=== PATIENT | female | born 1935 | race Caucasian/White ===

== ENCOUNTER 2016-07-09 10:36 | Emergency (ER) | payer MEDICARE, MEDICAID ==
--- NOTE | 2016-07-09 10:47 | ERNOTE ---
Medical Problem HPI - General Chief Complaint: General Assessment Time Seen by Provider: 07/09/16 10:36 Source: EMS, [facility] records Exam Limitations: clinical condition - Immun/Allergies/Home Medications Immunizations: IMMUNIZATION HX Immunizations Up to Date Yes History of Influenza Vaccine Yes Hx Pneumococcal Vaccination Yes Allergies/Adverse Reactions: Allergies No Known Allergies Allergy (Verified 07/09/16 10:45) Home Medications: HOME MEDICATIONS Alendronate Sodium [Fosamax] 70 mg PO SA 02/27/13 [Last Taken Unknown] Aspirin 325 mg PO DAILY 02/27/13 [Last Taken Unknown] Levothyroxine Sodium [Synthroid] 50 mcg PO DAILY 02/27/13 [Last Taken Unknown] Donepezil HCl [Aricept] 10 mg PO DAILY 12/03/15 [Last Taken Unknown] Lisinopril [Zestril] 5 mg PO DAILY tablet 12/09/15 [Last Taken Unknown] glipiZIDE [Glucotrol] 10 mg PO BIDAC tablet 12/09/15 [Last Taken Unknown] Ranitidine HCl [Heartburn Relief] 150 mg PO BID 02/09/16 [Last Taken Unknown] Sennosides [Senna-Extra] 17.2 mg PO HS 02/09/16 [Last Taken Unknown] Calcium Carbonate [Tums] 500 mg PO BID 02/13/16 [Last Taken Unknown] Bimatoprost [Lumigan 0.01% Opth Solution] 2.5 ml OP DAILY 07/09/16 [Last Taken Unknown] Furosemide [Lasix] 40 mg PO DAILY 07/09/16 [Last Taken Unknown] Gentamicin Sulfate [Gentak] 3.5 gm OP HS 07/09/16 [Last Taken Unknown] Memantine HCl [Namenda Xr] 28 mg PO DAILY 07/09/16 [Last Taken Unknown] Metformin HCl [Glumetza] 250 mg PO BID 07/09/16 [Last Taken Unknown] Metoprolol Tartrate [Lopressor] 50 mg PO BID 07/09/16 [Last Taken Unknown] - History of Present History Narrative: Patient is a [facility] resident with dementia and unable to give a history. She had breakfast and went back to bed. A nurse witnessed her turning purple and becoming unresponsive. On arrival of EMS patient is lethargic, no focal symptoms observed, becomes more alert during drive to hospital Date (Duration): 07/09/16 Time (Timing): 09:45 Review of Systems - Narrative Narrative: unobtainable due to dementia - Patient's Past Medical History Patient History - Medical: Alzheimer's Disease, Diabetes Type 2, Dementia, Hypothyroidism, Osteoporosis, UTI'S Patient History - Cardiac/Respiratory: Atrial Fibrillation Patient History - Cancer: No Hx of Cancer Patient History - Surgical Procedures: Noncontributory Patient History - Other: None - Family History Mother Family History - Medical: History Unknown Family History - Cardiac/Respiratory: History Unknown Father Family History - Medical: History Unknown Family History - Cardiac/Respiratory: History Unknown - Social History Living Situations: [facility]dc Abuse History: No History of abuse Psych History: No pertinent hx Alcohol Use: none Drug Use: none - Immunizations Immunizations Up to Date: Yes Hx Pneumococcal Vaccination: Yes History of Influenza Vaccine: Yes Physical Exam - Physical Exam General Appearance: Present: wd/wn, alert, no apparent distress Eye Exam: Normal inspection: bilateral, PERRL: bilateral Ears, Nose, Throat: Present: normal ENT inspection, normal pharynx Neck: Present: normal inspection Respiratory: Present: no respiratory distress, normal breath sounds, no accessory muscle use, lungs clear Cardiovascular/Chest: Present: regular rate, rhythm, no murmur Gastrointestinal/Abdominal: Present: normal bowel sounds, nontender, nondistended Neurological Exam: Present: alert, oriented - to first name only, no motor/ sensory deficits - following some commands, moves all extremities, 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 - Vital Signs Patient's Vital Signs:: I have reviewed the patient's vital signs. Vital Signs: Vital Signs 07/09/16 07/09/16 10:37 10:46 Temperature 36.4 C L Pulse Rate 69 75 Respiratory 16 24 H Rate Blood Pressure 120/63 120/63 O2 Sat by Pulse 93 Oximetry - EKG EKG: atrial fibrillation, nonspecific ST T wave changes EKG read: Interp. by me - X-Ray X-Ray #1 X-Ray: chest - slightly increased vascular markings, chronic changes Interpretation: Reviewed by me - Progress/Reassessment Chief Complaint: General Assessment Progress Note-Subjective: 07/09/16 12:29 patient alert, face symmetric, squeezes both hands Departure - Departure Clinical Impression: Choking Qualifiers: Encounter type: initial encounter Qualified Code(s): T17.308A - Unspecified foreign body in larynx causing other injury, initial encounter Disposition: [facility] [place] Condition: Fair Referrals: Sen Solis MD [Primary Care Provider] -
[2016-07-09 11:04] LABS: Hematocrit 40.4 % (37.0-47.0); Hemoglobin 13.3 gm/dL (12.5-16.0); Mean Cell Volume 100.2 fl (78-100); Mean Corpuscular Hgb Conc 32.9 g/dl (32-36); Mean Platelet Volume 10.3 fl (6.0-9.5); Neutrophil # 10.5 K/mm3 (1.3-6.0); Neutrophil % 74.5 % (42-75.0); Platelet Count 290 K/mm3 (150-450); Red Blood Count 4.03 M/mm3 (4.2-5.4); Red Cell Distribution Width 13.3 % (11.5-14.0); White Blood Count 14.1 K/mm3 (4.0-10.5)
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
[2016-07-09 11:22] LABS: ALT 18 U/L (19-67); AST 17 U/L (0-48); Albumin * 2.7 gm/dl (3.4-5.0); Alkaline Phosphatase * 99 U/L (50-170); Anion Gap 8.6 mmol/L (6.8-13.8); BUN/Creatinine Ratio 16.2 (9.0-21.6); Bilirubin, Total 0.4 mg/dL (0.0-1.1); Blood Urea Nitrogen 16 mg/dL (3-23); Ca. Corrected For Albumin 9.6 mg/dL (8.4-10.2); Calcium * 8.9 mg/dL (7.9-10.9); Carbon Dioxide 32.7 mmol/L (24-32.6); Chloride 104 mmol/L (97-106); Glucose * 178 mg/dL (70-110); Potassium 4.3 mmol/L (3.4-4.6); Sodium 141 mmol/L (132-142); Total Protein 7.8 gm/dL (6.2-8.2); Troponin I Less than 0.017 ng/ml (0.00-0.10)
[2016-07-09 12:01] VITALS: BP 105/58
== END 2016-07-09 13:10 ==
LOC: ER 10:36
DX: T17.308A Unspecified foreign body in larynx causing other injury, initial encounter (principal); X58.XXXA Exposure to other specified factors, initial encounter; Y93.9 Activity, unspecified; Y92.122 Bedroom in nursing home as the place of occurrence of the external cause

== ENCOUNTER 2018-05-05 14:30 | Inpatient (IN) ==
[2018-05-05] MEDS ORDERED: FUROSEMIDE 10 MG/ML VIAL IV ONE (14:47)
[2018-05-05 15:06] LABS: Hematocrit 43.5 % (37.0-47.0); Hemoglobin 13.7 gm/dL (12.5-16.0); Mean Cell Volume 103.6 fl (78-100); Mean Corpuscular Hemoglobin 32.6 pg (27-31); Mean Corpuscular Hgb Conc 31.5 g/dl (32-36); Mean Platelet Volume 11.8 fl (8-12.5); NRBC# 0.1 k/mm3 (0-1); Neutrophil # 8.4 K/mm3 (1.3-6.0); Neutrophil % 77.9 % (42-75.0); Platelet Count 204 K/mm3 (150-450); Red Cell Distribution Width 14.8 % (11.5-14.0); White Blood Count 10.8 K/mm3 (4.0-10.5)
[2018-05-05 15:25] LABS: BUN/Creatinine Ratio 33.3 (9.0-21.6)
[2018-05-05 15:26] LABS: Albumin * 2.4 gm/dl (3.4-5.0); Anion Gap 10.8 mmol/L (6.8-13.8); Bilirubin, Total 0.6 mg/dL (0.0-1.1); Carbon Dioxide 30.5 mmol/L (24-32.6); Potassium 3.3 mmol/L (3.4-4.6); Total Protein 7.8 gm/dL (6.2-8.2)
[2018-05-05 15:31] LABS: Troponin I 0.151 ng/mL (0.00-0.10)
--- NOTE | 2018-05-05 16:15 | ERNOTE ---
Dyspnea - Date Date of Service: 05/05/18 - General Presenting Symptoms: shortness of breath Time Seen by Provider: 05/05/18 14:43 Source: EMS Exam Limitations: clinical condition - Immun/Allergies/Home Medications Immunizations: IMMUNIZATION HX Immunizations Up to Date Yes History of Influenza Vaccine Yes Hx Pneumococcal Vaccination Yes Allergies/Adverse Reactions: Allergies No Known Allergies Allergy (Verified 05/05/18 14:41) Home Medications: HOME MEDICATIONS Alendronate Sodium [Fosamax] 70 mg PO SA 02/27/13 [Last Taken Unknown] Aspirin 325 mg PO DAILY 02/27/13 [Last Taken Unknown] Donepezil HCl [Aricept] 10 mg PO DAILY 12/03/15 [Last Taken Unknown] glipiZIDE [Glucotrol] 10 mg PO BIDAC tab 12/09/15 [Last Taken Unknown] Ranitidine HCl [Heartburn Relief] 150 mg PO BID 02/09/16 [Last Taken Unknown] Bimatoprost [Lumigan 0.01% Opth Solution] 2.5 ml OP DAILY 07/09/16 [Last Taken Unknown] Furosemide [Lasix] 40 mg PO DAILY 07/09/16 [Last Taken Unknown] Memantine HCl [Namenda Xr] 28 mg PO DAILY 07/09/16 [Last Taken Unknown] Metoprolol Tartrate [Lopressor] 50 mg PO BID 07/09/16 [Last Taken Unknown] metFORMIN HCL [Glumetza] 250 mg PO BID 07/09/16 [Last Taken Unknown] Cholecalciferol (Vitamin D3) [Vitamin D] 2,000 unit PO DAILY 09/20/17 [Last Taken Unknown] Cyanocobalamin [Vitamin B-12] 1,000 mcg PO DAILY 09/20/17 [Last Taken Unknown] Nystatin [Mycostatin Powder] 1 appl TP BID PRN 09/20/17 [Last Taken Unknown] acetaminophen 325 mg capsule 325 mg PO Q4H PRN 11/14/17 [Last Taken Unknown] albuterol sulfate 2.5 mg/3 mL (0.083 %) solution for nebulization 2.5 mg IH Q4H PRN 11/14/17 [Last Taken Unknown] levothyroxine 50 mcg capsule 50 mcg PO DAILY 11/14/17 [Last Taken Unknown] magnesium hydroxide 400 mg/5 mL oral suspension 30 ml PO HS PRN ml 11/14/17 [Last Taken Unknown] sennosides 8.6 mg tablet 17.2 mg PO QHS tab 11/14/17 [Last Taken Unknown] - History of Present Illness Narrative: [facility] with hx of dementia arrives in ed with respiratory distress,,also hx of chf Severity: severe Treatment SLIP MIXER: paramedics Initiating event: Reports: unknown Modifying Factors - (Improves): Reports: nothing Modifying Factors (Worsens): Reports: nothing Associated Symptoms-Dyspnea: Reports: denies symptoms Prior Treatment: Reports: recently seen, treated by physician Review of Systems - Narrative Narrative: patient unresponsive unable to obtain review of symptoms - Review of Systems Constitutional: Present: no symptoms reported EYE: Present: no symptoms reported ENT: Present: no symptoms reported Respiratory: Present: See HPI, shortness of breath, orthopnea Cardiology: Present: no symptoms reported Gastrointestinal/Abdominal: Present: no symptoms reported Genitourinary: Present: no symptoms reported Musculoskeletal: Present: no symptoms reported Skin: Present: no symptoms reported Neurological: Present: no symptoms reported Endocrine: Present: no symptoms reported Hematologic/Lymphatic: Present: no symptoms reported Psych: Present: no symptoms reported Medical History (Last Reviewed 04/04/18 @ 08:24 by Jennifer Pearl) Superficial injury of left foot and one or more toes (Acute) Hyperglycemia due to type 2 diabetes mellitus (Chronic) Social History: Preferred Language Faroese Smoking Status Never smoker Abuse History No History of abuse Psych History No pertinent hx (Last Updated 04/13/18 @ 20:28 by Michael Chatterjee DO) No Social History Section defined Physical Exam - Physical Exam General Appearance: Present: severe distress Head Exam: Present: normal inspection, no evidence of injury Eye Exam: Normal inspection: bilateral, PERRL: bilateral, EOMI: bilateral Ears, Nose, Throat: Present: normal ENT inspection Neck: Present: other - jvd present Respiratory: Present: respiratory distress, accessory muscle use, decreased breath sounds, crackles, rales, rhonchi Cardiovascular/Chest: Present: tachycardia, systolic murmur Gastrointestinal/Abdominal: Present: normal bowel sounds, nontender, nondistended, soft, no organomegaly Back Exam: Present: normal inspection, normal range of motion, no CVA tenderness, no vertebral tenderness Extremity Exam: Present: normal range of motion, extremity edema Neurological Exam: Present: disoriented to person, disoriented to place, disoriented to situation Skin Exam: Present: normal color, warm/dry Lymphatic Exam: Present: no adenopathy Progress - Date and Time Seen: Date and Time: 05/05/18 16:12 condition unchanged, case discussed with dr rose to be admitted, condition poor - Results and Orders Patient's Lab Results:: I have reviewed the patient's lab results. - Vital Signs Patient's Vital Signs:: I have reviewed the patient's vital signs. Vital Signs: Vital Signs 05/05/18 14:36 05/05/18 14:55 05/05/18 15:08 Temperature 36.7 C Pulse Rate 141 H 149 H 147 H Respiratory Rate 23 H Blood Pressure 136/78 129/67 O2 Sat by Pulse Oximetry 84 L 05/05/18 15:30 Temperature Pulse Rate 142 H Respiratory Rate 22 H Blood Pressure 150/75 H O2 Sat by Pulse Oximetry 93 - EKG EKG: supraventricular tachycardia - X-Ray X-Ray #1 X-Ray: chest Interpretation: Discd w/ radiologist - chf, pulmonary edema - Progress/Reassessment Chief Complaint: Dyspnea Progress:: Unchanged - Transfer of Care Expected Disposition: Admit Plan - Plan Plan: to admit to hosppital Departure Clinical Impression: Congestive heart failure (CHF) - Departure Disposition: Still a patient Condition: Critical Referrals: Michael Chatterjee DO [Primary Care Provider] -
[2018-05-05] MEDS ORDERED: 0.5 NORMAL SALINE 1,000 ML IV PRN (17:02)
[2018-05-05] MEDS ORDERED: METOPROLOL TARTRATE 1 MG/ML AMPUL IV ONE (17:03)
--- NOTE | 2018-05-05 17:09 | HP ---
Chief Complaint - Chief Complaint Date of Service: 05/05/18 Time of Service: 17:09 Chief Complaint: Change in mental status, cough, shortness of breath History of Present Illness: Michelle is an 83 yo female with chronic dementia who had an acute change of decrease mentation and unable to take medications, she also was short of breath, and had a cough. She presented to the [facility] ER. She does not converse, but this may be more chronic dementia. She was 84% on room air and was placed on 6lpm oxygen to keep sats >90%. She had a chest xray that showed pulmonary congestion and possible consolidation vs pulmonary edema. She was given 80mg IV lasix in the ER. Her heart rate was 140bpm with atrial fibrillation (chronic) on EKG. She had leukocytosis and deminshed GFR. Potassium low. The patient does not communicate so further history is unobtainable, will use records from [facility]. Medical History (Last Reviewed 05/06/18 @ 01:47 by Maria C Colon RN) Superficial injury of left foot and one or more toes (Acute) Hyperglycemia due to type 2 diabetes mellitus (Chronic) Acute respiratory failure Alzheimer disease Anemia Aphasia Atrial fibrillation CHF (congestive heart failure) Dysphagia, oropharyngeal phase Hypertension Hypothyroidism Muscle weakness Osteoporosis Pulmonary hypertension Rheumatic heart disease Type 2 diabetes mellitus UTI (urinary tract infection) Surgical History: Surgical History (Last Reviewed 05/06/18 @ 01:48 by Maria C Colon RN) H/O splenectomy History of colonoscopy History of repair of hip fracture Family History: Family History (Last Reviewed 05/06/18 @ 01:48 by Maria C Colon RN) Daughter Goiter Social History: Preferred Language Faroese Smoking Status Never smoker Abuse History No History of abuse Psych History No pertinent hx (Last Updated 04/13/18 @ 20:28 by Michael Chatterjee DO) No Social History Section defined Review Of Systems (GEN) - Review of Systems Additional Comments: Unable to obtain from patient due to condition. Immunizations: IMMUNIZATION HX Immunizations Up to Date Yes History of Influenza Vaccine Yes Hx Pneumococcal Vaccination Yes Allergies/Adverse Reactions: Allergies Allergy/AdvReac Type Severity Reaction Status Date / Time No Known Allergies Allergy Verified 05/05/18 14:41 Home Medications: HOME MEDICATIONS Alendronate Sodium [Fosamax] 70 mg PO SA 02/27/13 [Last Taken Unknown] Aspirin 325 mg PO DAILY 02/27/13 [Last Taken Unknown] glipiZIDE [Glucotrol] 10 mg PO BIDAC tab 12/09/15 [Last Taken Unknown] Ranitidine HCl [Heartburn Relief] 150 mg PO BID 02/09/16 [Last Taken Unknown] Bimatoprost [Lumigan 0.01% Opth Solution] 2.5 ml OP DAILY 07/09/16 [Last Taken Unknown] Furosemide [Lasix] 40 mg PO DAILY 07/09/16 [Last Taken Unknown] Metoprolol Tartrate [Lopressor] 50 mg PO BID 07/09/16 [Last Taken Unknown] metFORMIN HCL [Glumetza] 250 mg PO BID 07/09/16 [Last Taken Unknown] Cholecalciferol (Vitamin D3) [Vitamin D] 2,000 unit PO DAILY 09/20/17 [Last Taken Unknown] Cyanocobalamin [Vitamin B-12] 1,000 mcg PO DAILY 09/20/17 [Last Taken Unknown] Nystatin [Mycostatin Powder] 1 appl TP BID PRN 09/20/17 [Last Taken Unknown] albuterol sulfate 2.5 mg/3 mL (0.083 %) solution for nebulization 2.5 mg IH QID PRN 11/14/17 [Last Taken Unknown] levothyroxine 50 mcg capsule 50 mcg PO DAILY 11/14/17 [Last Taken Unknown] magnesium hydroxide 400 mg/5 mL oral suspension 30 ml PO DAILY PRN ml 11/14/17 [Last Taken Unknown] sennosides 8.6 mg tablet 17.2 mg PO QHS tab 11/14/17 [Last Taken Unknown] Acarbose [Precose] 25 mg PO TID 05/05/18 [Last Taken Unknown] Acetaminophen [Pain Relief] 500 mg PO Q4H PRN 05/05/18 [Last Taken Unknown] Calcium Carbonate [Calcium Antacid] 500 mg PO BID 05/05/18 [Last Taken Unknown] Carboxymethylcellulose Sodium [Refresh Tears] 15 ml OPHTHALMIC (EYE) BID 05/05/18 [Last Taken Unknown] Lisinopril [Zestril] 2.5 mg PO HS 05/05/18 [Last Taken Unknown] Exam - Exam Vital Signs: Vital Signs - Last Taken Temp 36.7 C 05/05/18 14:36 Pulse 147 H 05/05/18 16:30 Resp 20 05/05/18 16:30 BP 106/67 05/05/18 16:30 Pulse Ox 92 L 05/05/18 16:30 Constitutional: Present: Alert, Moderate distress - Tachypnea. Absent: Oriented x3 Eye Exam: bilateral eye: normal inspection Respiratory: Present: respiratory distress - tachypnea, crackles Cardiovascular/Chest: Present: no murmur, tachycardia, irregularly irregular Abdomen: Present: Normal bowel sounds, soft, nontender, nondistended, no hepatospenomegaly Extremity: Present: normal inspection, no pedal edema Skin Exam: Present: normal color, warm/dry, no cyanosis Lymphatic: Present: no adenopathy Eye contact: Present: other - poor eye contact, does not speak Diagnostic Studies: Abnormal Lab Results 05/05/18 05/05/18 05/05/18 Range/Units 14:55 14:55 15:17 WBC 10.8 H (4.0-10.5) K/mm3 MCV 103.6 H (78-100) fl MCH 32.6 H (27-31) pg MCHC 31.5 L (32-36) g/dl RDW 14.8 H (11.5-14.0) % Immature Gran % (Auto) 0.60 H (0.001-0.429) % Immature Gran # (Auto) 0.06 H (0.000-0.0310) K/mm3 Neutrophils % 77.9 H (42-75.0) % Lymphocytes % 10.0 L (20-51) % Monocytes % 11.1 H (0.0-9) % Neutrophils # 8.4 H (1.3-6.0) K/mm3 Lymphocytes # 1.08 L (1.5-3.5) k/mm3 Monocytes # 1.2 H (0.0-1.0) k/mm3 pO2 71.9 L (83.0-108.0) mmHg Total CO2 28.4 H (19.0-24.0) mmol/L Sodium 151 H (132-142) mmol/L Plasma Sodium 154 H (130-142) mmol/L Potassium 3.3 L D (3.4-4.6) mmol/L Chloride 113 H (97-106) mmol/L BUN 41 H D (3-23) mg/dL Est GFR (Non-Af Amer) 44 L D (60-130) mL/min BUN/Creatinine Ratio 33.3 H (9.0-21.6) Random Glucose 284 H (70-110) mg/dL ALT 8 L (19-67) U/L Troponin I 0.151 H* (0.00-0.10) ng/mL B-Natriuretic Peptide 3679 H (5-550) pg/mL Albumin 2.4 L (3.4-5.0) gm/dl Laboratory Results WBC 10.8 K/mm3 (4.0-10.5) H 05/05/18 14:55 RBC 4.20 M/mm3 (4.2-5.4) 05/05/18 14:55 Hgb 13.7 gm/dL (12.5-16.0) 05/05/18 14:55 Hct 43.5 % (37.0-47.0) 05/05/18 14:55 MCV 103.6 fl (78-100) H 05/05/18 14:55 MCH 32.6 pg (27-31) H 05/05/18 14:55 MCHC 31.5 g/dl (32-36) L 05/05/18 14:55 RDW 14.8 % (11.5-14.0) H 05/05/18 14:55 Plt Count 204 K/mm3 (150-450) 05/05/18 14:55 MPV 11.8 fl (8-12.5) 05/05/18 14:55 Immature Gran % (Auto) 0.60 % (0.001-0.429) H 05/05/18 14:55 Immature Gran # (Auto) 0.06 K/mm3 (0.000-0.0310) H 05/05/18 14:55 Neutrophils % 77.9 % (42-75.0) H 05/05/18 14:55 Lymphocytes % 10.0 % (20-51) L 05/05/18 14:55 Monocytes % 11.1 % (0.0-9) H 05/05/18 14:55 Eosinophils % 0.0 % (0.0-3.0) 05/05/18 14:55 Basophils % 0.4 % (0.0-1.0) 05/05/18 14:55 Nucleated RBC % 0.1 k/mm3 (0-1) 05/05/18 14:55 Neutrophils # 8.4 K/mm3 (1.3-6.0) H 05/05/18 14:55 Lymphocytes # 1.08 k/mm3 (1.5-3.5) L 05/05/18 14:55 Monocytes # 1.2 k/mm3 (0.0-1.0) H 05/05/18 14:55 Eosinophils # 0.0 k/mm3 (0.0-0.7) 05/05/18 14:55 Absolute Basophils 0.0 k/mm3 (0.0-0.1) 05/05/18 14:55 pCO2 44.6 mmHg (32.0-45.0) 05/05/18 15:17 pO2 71.9 mmHg (83.0-108.0) L 05/05/18 15:17 HCO3 27.1 mmol/L (21.0-28.0) 05/05/18 15:17 Total CO2 28.4 mmol/L (19.0-24.0) H 05/05/18 15:17 Base Excess 1.8 mmol/L (-2.0-3.0) 05/05/18 15:17 ABG pH 7.40 (7.35-7.45) 05/05/18 15:17 ABG O2 Sat (Measured) 94.4 % (94.0-98.0) 05/05/18 15:17 Sodium 151 mmol/L (132-142) H 05/05/18 14:55 Plasma Sodium 154 mmol/L (130-142) H 05/05/18 14:55 Potassium 3.3 mmol/L (3.4-4.6) L D 05/05/18 14:55 Chloride 113 mmol/L (97-106) H 05/05/18 14:55 Carbon Dioxide 30.5 mmol/L (24-32.6) 05/05/18 14:55 Anion Gap 10.8 mmol/L (6.8-13.8) 05/05/18 14:55 BUN 41 mg/dL (3-23) H D 05/05/18 14:55 Creatinine 1.23 mg/dL (0.4-1.4) 05/05/18 14:55 Est GFR (Non-Af Amer) 44 mL/min (60-130) L D 05/05/18 14:55 BUN/Creatinine Ratio 33.3 (9.0-21.6) H 05/05/18 14:55 Random Glucose 284 mg/dL (70-110) H 05/05/18 14:55 Calcium 9.0 mg/dL (7.9-10.9) 05/05/18 14:55 Calcium Adj for Albumin 10.0 mg/dL (8.4-10.2) 05/05/18 14:55 Total Bilirubin 0.6 mg/dL (0.0-1.1) 05/05/18 14:55 AST 25 U/L (0-48) 05/05/18 14:55 ALT 8 U/L (19-67) L 05/05/18 14:55 Alkaline Phosphatase 92 U/L (50-170) 05/05/18 14:55 Troponin I 0.151 ng/mL (0.00-0.10) H* 05/05/18 14:55 B-Natriuretic Peptide 3679 pg/mL (5-550) H 05/05/18 14:55 Total Protein 7.8 gm/dL (6.2-8.2) 05/05/18 14:55 Albumin 2.4 gm/dl (3.4-5.0) L 05/05/18 14:55 Assessment/Plan - Narrative Narrative: Michelle is an 83 yo female with: 1) Acute Respiratory Failure - Secondary to Pulmonary Congestion vs consolidation. This is likely a combination of acute on chronic diastolic CHF that is related to atrial fibrillation with RVR. Heart rate in the ER was 140. She takes metoprolol but has been unable to take her betablocker today due to condition change. Will give IV metoprolol for now until she is able to take oral. Will monitor heart rate. Atrial fibrillation is chronic. Labs appear to be intravascular depleted. Will give a liter of IV fluids over an hour to hydrate but not to worsen the CHF. She would not tolerate aggressive fluid treatment for her possible sepsis. She was already given Lasix in the ER for pulmonary congestion. 2) Potential sepsis based on possible pneumonia on chest xray, leukocytosis, and change in mentation. Will give as much fluid as I am comfortable with. Will treat with rocephin/azithromycin. Blood cultures taken in the ER prior to antibiotics. 3) Atrial fibrillation with RVR. Will give fluids and IV metoprolol. Monitor heart rate. 4) Hypokalemia - Monitor potassium and replace as needed. - Assessment/Plan (1) Respiratory failure with hypoxia Problem: Acute Qualifiers: Chronicity: acute Qualified Code(s): J96.01 - Acute respiratory failure with hypoxia (2) Congestive heart failure (CHF) Problem: Acute Qualifiers: Heart failure type: diastolic Heart failure chronicity: acute on chronic Qualified Code(s): I50.33 - Acute on chronic diastolic (congestive) heart failure (3) Sepsis Problem: Suspected Qualifiers: Sepsis type: sepsis due to unspecified organism Qualified Code(s): A41.9 - Sepsis, unspecified organism (4) Hypernatremia Problem: Acute (5) Atrial fibrillation with RVR Problem: Chronic (6) Dementia Problem: Chronic Qualifiers: Dementia type: Alzheimer's disease Alzheimer's disease onset: unspecified onset Dementia behavioral disturbance: without behavioral disturbance Qualified Code(s): G30.9 - Alzheimer's disease, unspecified
[2018-05-05] MEDS ORDERED: NORMAL SALINE 3 ML BOX IV PRN (17:20)
[2018-05-05] MEDS ORDERED: LEVALBUTEROL HCL 1.25 MG/3 ML AMPUL IH ONE (17:33)
[2018-05-05] MEDS: LEVALBUTEROL HCL 1.25 MG/3 ML AMPUL IH SCH ×3 (17:37→22:36)
[2018-05-05] MEDS ORDERED: AZITHROMYCIN 500 MG in DEXTROSE 5 % IN WATER 250 ML IV ONE ×2 (18:00)
[2018-05-05 18:22] LABS: Urine Bilirubin Negative (NEGATIVE); Urine Blood 25 /ul (NEGATIVE); Urine Ketone Negative (NEGATIVE); Urine Nitrite Negative (NEGATIVE); Urine Protein Negative (NEGATIVE); Urine Specific Gravity 1.015 SP.GR. (1.005-1.010); Urine Urobilinogen Normal (NORMAL)
[2018-05-05 18:39] LABS: Urine Appearance Slightly Cloudy (CLEAR); Urine Bacteria 1+; Urine Color Pale Yellow
[2018-05-05] MEDS ORDERED: FUROSEMIDE 10 MG/ML VIAL IV SCH (21:00)
[2018-05-06] MEDS: LEVALBUTEROL HCL 1.25 MG/3 ML AMPUL IH SCH ×6 (02:04→22:09)
[2018-05-06 07:15] LABS: Hematocrit 44.5 % (37.0-47.0); Hemoglobin 13.6 gm/dL (12.5-16.0); Mean Cell Volume 103.7 fl (78-100); Mean Corpuscular Hemoglobin 31.7 pg (27-31); Mean Corpuscular Hgb Conc 30.6 g/dl (32-36); Mean Platelet Volume 11.5 fl (8-12.5); NRBC# 0.1 k/mm3 (0-1); Neutrophil # 9.6 K/mm3 (1.3-6.0); Neutrophil % 78.7 % (42-75.0); Platelet Count 185 K/mm3 (150-450); Red Blood Count 4.29 M/mm3 (4.2-5.4); Red Cell Distribution Width 14.9 % (11.5-14.0); White Blood Count 12.3 K/mm3 (4.0-10.5)
[2018-05-06 07:27] LABS: Albumin * 2.2 gm/dl (3.4-5.0); Anion Gap 7.4 mmol/L (6.8-13.8); BUN/Creatinine Ratio 32.7 (9.0-21.6); Bilirubin, Total 0.4 mg/dL (0.0-1.1); Ca. Corrected For Albumin 9.4 mg/dL (8.4-10.2); Calcium * 8.3 mg/dL (7.9-10.9); Carbon Dioxide 33.5 mmol/L (24-32.6); Potassium 2.9 mmol/L (3.4-4.6); Total Protein 7.5 gm/dL (6.2-8.2)
[2018-05-06 07:28] LABS: Troponin I 0.055 ng/mL (0.00-0.10)
[2018-05-06] MEDS ORDERED: MAGNESIUM HYDROXIDE 30 ML UDC PO PRN (09:28)
[2018-05-06] MEDS ORDERED: NYSTATIN 15 APPL BTL TP PRN (09:28)
[2018-05-06] MEDS ORDERED: FUROSEMIDE 10 MG/ML VIAL IV ONE (09:31)
[2018-05-06] MEDS: METOPROLOL TARTRATE 50 MG TABLET PO SCH ×2 (10:03→20:52)
[2018-05-06] MEDS: LEVOTHYROXINE SODIUM 50 MCG TABLET PO SCH (10:03)
[2018-05-06] MEDS: FAMOTIDINE 20 MG TABLET PO SCH ×2 (10:03→20:52)
[2018-05-06] MEDS: ASPIRIN 325 MG TABLET.DR PO SCH (10:03)
[2018-05-06] MEDS: POTASSIUM CHLORIDE 40 MEQ/15 ML BTL PO SCH ×2 (10:04→20:52)
[2018-05-06] MEDS: INSULIN LISPRO 100 UNITS/ML VIAL SC SCH ×4 (11:58→21:18)
--- NOTE | 2018-05-06 18:40 | PN ---
Subjective - Date and Time Seen Date: 05/06/18 Time: 09:30 Subjective Narrative: Michelle remains in a non-communicative state. She opens eyes and makes eye contact. She does not follow commands. I am not familiar with her baseline. Audible coarse inspiration. She is able to take liquids and crushed medications today. Heart rate has improved. Objective - Vitals Vitals: Last Vital Signs Temp 37.2 C 05/06/18 14:00 Pulse 102 H 05/06/18 14:51 Resp 20 05/06/18 14:51 BP 111/62 05/06/18 14:00 Pulse Ox 90 L 05/06/18 15:12 - Abnormal Lab Findings Abnormal Lab Findings: Abnormal Lab Results 05/05/18 05/06/18 05/06/18 Range/Units 18:02 07:08 07:08 WBC 12.3 H (4.0-10.5) K/mm3 MCV 103.7 H (78-100) fl MCH 31.7 H (27-31) pg MCHC 30.6 L (32-36) g/dl RDW 14.9 H (11.5-14.0) % Immature Gran % (Auto) 0.60 H (0.001-0.429) % Immature Gran # (Auto) 0.07 H (0.000-0.0310) K/mm3 Neutrophils % 78.7 H (42-75.0) % Lymphocytes % 12.3 L (20-51) % Neutrophils # 9.6 H (1.3-6.0) K/mm3 Sodium 148 H (132-142) mmol/L Plasma Sodium 151 H (130-142) mmol/L Potassium 2.9 L (3.4-4.6) mmol/L Chloride 110 H (97-106) mmol/L Carbon Dioxide 33.5 H (24-32.6) mmol/L BUN 35 H (3-23) mg/dL Est GFR (Non-Af Amer) 52 L (60-130) mL/min BUN/Creatinine Ratio 32.7 H (9.0-21.6) Random Glucose 258 H (70-110) mg/dL ALT 11 L (19-67) U/L Albumin 2.2 L (3.4-5.0) gm/dl Urine Blood 25 H (NEGATIVE) /ul Ur Leukocyte Esterase 100 H (NEGATIVE) /ul Urine RBC 5-10 H (0-5) /hpf Urine WBC 10-25 H (0-5) /hpf Ur Epithelial Cells 5-10 H (0-5) /hpf Urine Bacteria 1+ H (NONE) - Exam Constitutional: Present: Alert, No distress. Absent: Oriented x3 Respiratory: Present: no respiratory distress, crackles Cardiovascular/Chest: Present: no edema, irregularly irregular Abdomen: Present: Normal bowel sounds, soft, nontender, nondistended, no rebound tenderness Skin Exam: Present: normal color, warm/dry, no cyanosis Lymphatic: Present: no adenopathy Cauti Physician Documentation - Urinary Catheter Management Urethral (Retana) Date of Insertion: 05/05/18 Time of Insertion: 17:50 Assessment/Plan Plan Narrative: Michelle is an 83 yo female with: 1) Acute Respiratory Failure - Secondary to Pulmonary Congestion vs consolidation. Improved. Currently weaning oxygen. Breathing easier today. Continue rocephin/azithromycin for possible pneumonia. Continue gentle diuresis, breathing treatments, and controlling atrial fibrillation rate. 2) Potential sepsis based on possible pneumonia on chest xray, leukocytosis, and change in mentation. Will give as much fluid as I am comfortable with. Will treat with rocephin/azithromycin. Blood cultures taken in the ER prior to antibiotics. 3) Atrial fibrillation with RVR. Able to take oral metoprolol today. Rate improved. 4) Hypokalemia - Monitor potassium and replace as needed. - Problems/Diagnosis (1) Respiratory failure with hypoxia Problem: Acute Qualifiers: Chronicity: acute Qualified Code(s): J96.01 - Acute respiratory failure with hypoxia (2) Congestive heart failure (CHF) Problem: Acute Qualifiers: Heart failure type: diastolic Heart failure chronicity: acute on chronic Qualified Code(s): I50.33 - Acute on chronic diastolic (congestive) heart failure (3) Sepsis Problem: Suspected Qualifiers: Sepsis type: sepsis due to unspecified organism Qualified Code(s): A41.9 - Sepsis, unspecified organism (4) Hypernatremia Problem: Acute (5) Atrial fibrillation with RVR Problem: Chronic (6) Pneumonia Problem: Suspected Qualifiers: Laterality: right Lung location: upper lobe of lung (7) Dementia Problem: Chronic Qualifiers: Dementia type: Alzheimer's disease Alzheimer's disease onset: unspecified onset Dementia behavioral disturbance: without behavioral disturbance Qualified Code(s): G30.9 - Alzheimer's disease, unspecified; F02.80 - Dementia in other diseases classified elsewhere without behavioral disturbance
[2018-05-06] MEDS ORDERED: ACETAMINOPHEN 325 MG TABLET PO PRN (20:15)
[2018-05-06] MEDS: SENNOSIDES 8.6 MG TABLET PO SCH (20:52)
[2018-05-07] MEDS: LEVALBUTEROL HCL 1.25 MG/3 ML AMPUL IH SCH ×7 (02:09→22:54)
[2018-05-07] MEDS: INSULIN LISPRO 100 UNITS/ML VIAL SC SCH ×4 (06:21→20:54)
[2018-05-07] MEDS: LEVOTHYROXINE SODIUM 50 MCG TABLET PO SCH (06:22)
[2018-05-07] MEDS: ASPIRIN 325 MG TABLET.DR PO SCH (08:17)
[2018-05-07] MEDS: METOPROLOL TARTRATE 50 MG TABLET PO SCH (08:17)
[2018-05-07] MEDS: POTASSIUM CHLORIDE 40 MEQ/15 ML BTL PO SCH (08:18)
[2018-05-07] MEDS: FAMOTIDINE 20 MG TABLET PO SCH ×2 (08:18→20:53)
[2018-05-07] MEDS: METOPROLOL TARTRATE 100 MG TABLET PO SCH ×2 (09:17→20:53)
[2018-05-07] MEDS: AZITHROMYCIN 250 MG TABLET PO SCH (09:21)
[2018-05-07 09:33] LABS: Hematocrit 47.1 % (37.0-47.0); Hemoglobin 14.2 gm/dL (12.5-16.0); Mean Corpuscular Hemoglobin 32.9 pg (27-31); Mean Corpuscular Hgb Conc 30.1 g/dl (32-36); Platelet Count 150 K/mm3 (150-450); Red Blood Count 4.32 M/mm3 (4.2-5.4); Red Cell Distribution Width 15.2 % (11.5-14.0); White Blood Count 12.3 K/mm3 (4.0-10.5)
[2018-05-07 09:35] LABS: Total Cells Counted 100
[2018-05-07 09:36] LABS: Anion Gap 9.5 mmol/L (6.8-13.8); BUN/Creatinine Ratio 30.7 (9.0-21.6); Bilirubin, Total 0.4 mg/dL (0.0-1.1); Ca. Corrected For Albumin 10.1 mg/dL (8.4-10.2); Calcium * 8.8 mg/dL (7.9-10.9); Carbon Dioxide 27.2 mmol/L (24-32.6); Potassium 4.7 mmol/L (3.4-4.6); Total Protein 7.4 gm/dL (6.2-8.2)
[2018-05-07 10:03] LABS: Atypical (Reactive) Lymph 5 % (0-2); Lymphocyte 12 % (20-51); Monocyte 3 % (0-9); Neutrophil 80 % (42-75); Neutrophil # 9.8 K/mm3 (1.3-6.0)
[2018-05-07 10:04] LABS: Anisocytosis 1+; Microcytosis 1+; Platelet Estimate Normal (NORMAL); Target Cells 2+
[2018-05-07 10:05] LABS: Tear Drop Cells 1+
[2018-05-07] MEDS ORDERED: FUROSEMIDE 10 MG/ML VIAL IV ONE (10:45)
--- NOTE | 2018-05-07 10:59 | PN ---
Subjective - Date and Time Seen Date: 05/07/18 Time: 10:51 Subjective Narrative: Michelle continues not to speak. Update with [facility] shows that she had not been talking at their facility either. She takes medications crushed. Currently on 3lpm. No respiratory distress. Oxygenating well. Objective - Vitals Vitals: Last Vital Signs Temp 35.9 C L 05/07/18 06:30 Pulse 96 05/07/18 10:29 Resp 20 05/07/18 10:29 BP 126/69 05/07/18 09:17 Pulse Ox 91 L 05/07/18 10:29 - Abnormal Lab Findings Abnormal Lab Findings: Abnormal Lab Results 05/07/18 05/07/18 Range/Units 09:10 09:10 WBC 12.3 H (4.0-10.5) K/mm3 Hct 47.1 H (37.0-47.0) % MCV 109.0 H (78-100) fl MCH 32.9 H (27-31) pg MCHC 30.1 L (32-36) g/dl RDW 15.2 H (11.5-14.0) % Neutrophils % (Manual) 80 H (42-75) % Lymphocytes % (Manual) 12 L (20-51) % Neutrophils # (Manual) 9.8 H (1.3-6.0) K/mm3 Atypic/Reactive Lymphs 5 H (0-2) % Sodium 144 H (132-142) mmol/L Plasma Sodium 148 H (130-142) mmol/L Potassium 4.7 H D (3.4-4.6) mmol/L Chloride 112 H (97-106) mmol/L BUN 31 H (3-23) mg/dL Est GFR (Non-Af Amer) 56 L (60-130) mL/min BUN/Creatinine Ratio 30.7 H (9.0-21.6) Random Glucose 324 H (70-110) mg/dL ALT 10 L (19-67) U/L Albumin 2.0 L (3.4-5.0) gm/dl - Exam Exam Narrative: Does not wake to talk or make eye contact. Constitutional: Present: Somnolent Respiratory: Present: crackles Cardiovascular/Chest: Present: irregularly irregular Abdomen: Present: Normal bowel sounds, soft, nondistended Skin Exam: Present: normal color, warm/dry, no cyanosis Cauti Physician Documentation - Urinary Catheter Management Urethral (Retana) Date of Insertion: 05/05/18 Time of Insertion: 17:50 Assessment/Plan Plan Narrative: Michelle is an 83 yo female with: 1) Acute Respiratory Failure - Secondary to Pulmonary Congestion vs consolidation. Improved. Currently weaning oxygen. Breathing easier today. Currently on 3lpm. Continue rocephin/azithromycin for pneumonia. Continue gentle diuresis, breathing treatments, and controlling atrial fibrillation rate. Continue to wean off oxygen. 2) Blood cultures negative to date, sepsis ruled out 3) Atrial fibrillation with RVR. Rate was still elevated above 100, increased metoprolol to 100mg BID 4) Hypokalemia - Potassium is a little elevated today. Will hold potassium, will continue lasix. - Problems/Diagnosis (1) Respiratory failure with hypoxia Problem: Acute Qualifiers: Chronicity: acute Qualified Code(s): J96.01 - Acute respiratory failure with hypoxia (2) Congestive heart failure (CHF) Problem: Acute Qualifiers: Heart failure type: diastolic Heart failure chronicity: acute on chronic Qualified Code(s): I50.33 - Acute on chronic diastolic (congestive) heart failure (3) Sepsis Problem: Suspected Qualifiers: Sepsis type: sepsis due to unspecified organism Qualified Code(s): A41.9 - Sepsis, unspecified organism (4) Hypernatremia Problem: Acute (5) Atrial fibrillation with RVR Problem: Chronic (6) Pneumonia Problem: Suspected Qualifiers: Laterality: right Lung location: upper lobe of lung (7) Dementia Problem: Chronic Qualifiers: Dementia type: Alzheimer's disease Alzheimer's disease onset: unspecified onset Dementia behavioral disturbance: without behavioral disturbance Qualified Code(s): G30.9 - Alzheimer's disease, unspecified; F02.80 - Dementia in other diseases classified elsewhere without behavioral disturbance
[2018-05-07] MEDS: SENNOSIDES 8.6 MG TABLET PO SCH (20:54)
[2018-05-08] MEDS: LEVALBUTEROL HCL 1.25 MG/3 ML AMPUL IH SCH ×6 (02:17→22:09)
[2018-05-08] MEDS: INSULIN LISPRO 100 UNITS/ML VIAL SC SCH ×4 (06:48→21:33)
[2018-05-08 10:23] LABS: Hematocrit 45.4 % (37.0-47.0); Hemoglobin 14.1 gm/dL (12.5-16.0); Mean Cell Volume 104.6 fl (78-100); Mean Corpuscular Hemoglobin 32.5 pg (27-31); Mean Corpuscular Hgb Conc 31.1 g/dl (32-36); Mean Platelet Volume 12.3 fl (8-12.5); NRBC# 0.1 k/mm3 (0-1); Neutrophil # 7.9 K/mm3 (1.3-6.0); Neutrophil % 75.5 % (42-75.0); Platelet Count 161 K/mm3 (150-450); Red Blood Count 4.34 M/mm3 (4.2-5.4); White Blood Count 10.4 K/mm3 (4.0-10.5)
[2018-05-08 10:37] LABS: Albumin * 2.1 gm/dl (3.4-5.0); Anion Gap 6.8 mmol/L (6.8-13.8); BUN/Creatinine Ratio 27.8 (9.0-21.6); Bilirubin, Total 0.4 mg/dL (0.0-1.1); Ca. Corrected For Albumin 10.5 mg/dL (8.4-10.2); Calcium * 9.3 mg/dL (7.9-10.9); Carbon Dioxide 33.5 mmol/L (24-32.6); Potassium 4.3 mmol/L (3.4-4.6); Total Protein 7.6 gm/dL (6.2-8.2)
[2018-05-08] MEDS: FAMOTIDINE 20 MG TABLET PO SCH ×2 (12:21→21:40)
[2018-05-08] MEDS: AZITHROMYCIN 250 MG TABLET PO SCH (12:21)
[2018-05-08] MEDS: ASPIRIN 325 MG TABLET.DR PO SCH (12:22)
[2018-05-08] MEDS: METOPROLOL TARTRATE 100 MG TABLET PO SCH ×2 (12:22→21:40)
[2018-05-08] MEDS: LEVOTHYROXINE SODIUM 50 MCG TABLET PO SCH (12:22)
--- NOTE | 2018-05-08 21:12 | PN ---
Subjective - Date and Time Seen Date: 05/08/18 Time: 21:12 Subjective Narrative: No concerns per nursing. Michelle does not communicate. Objective - Vitals Vitals: Last Vital Signs Temp 36.3 C 05/08/18 19:00 Pulse 95 05/08/18 19:00 Resp 18 05/08/18 19:00 BP 141/93 H 05/08/18 19:00 Pulse Ox 92 L 05/08/18 19:00 - Abnormal Lab Findings Abnormal Lab Findings: Abnormal Lab Results 05/08/18 05/08/18 Range/Units 09:55 09:55 MCV 104.6 H (78-100) fl MCH 32.5 H (27-31) pg MCHC 31.1 L (32-36) g/dl RDW 15.0 H (11.5-14.0) % Immature Gran % (Auto) 0.60 H (0.001-0.429) % Immature Gran # (Auto) 0.06 H (0.000-0.0310) K/mm3 Neutrophils % 75.5 H (42-75.0) % Lymphocytes % 16.9 L (20-51) % Neutrophils # 7.9 H (1.3-6.0) K/mm3 Sodium 148 H (132-142) mmol/L Plasma Sodium 150 H (130-142) mmol/L Chloride 112 H (97-106) mmol/L Carbon Dioxide 33.5 H (24-32.6) mmol/L BUN 27 H (3-23) mg/dL Est GFR (Non-Af Amer) 58 L (60-130) mL/min BUN/Creatinine Ratio 27.8 H (9.0-21.6) Random Glucose 200 H D (70-110) mg/dL Calcium Adj for Albumin 10.5 H (8.4-10.2) mg/dL ALT 9 L (19-67) U/L Albumin 2.1 L (3.4-5.0) gm/dl - Exam Constitutional: Present: Alert. Absent: Oriented x3 Respiratory: Present: lungs clear, normal breath sounds Cardiovascular/Chest: Present: regular rate, rhythm, no murmur Abdomen: Present: Normal bowel sounds, soft, nondistended Skin Exam: Present: normal color, warm/dry, no cyanosis Cauti Physician Documentation - Urinary Catheter Management Urethral (Retana) Date of Insertion: 05/05/18 Time of Insertion: 17:50 Date of Removal: 05/08/18 Time of Removal: 10:56 Assessment/Plan Plan Narrative: Medically stable and improved back to her baseline. Will be able to discharge to long-term tomorrow with completion of oral antibiotics. - Problems/Diagnosis (1) Respiratory failure with hypoxia Problem: Resolved Qualifiers: Chronicity: acute Qualified Code(s): J96.01 - Acute respiratory failure with hypoxia (2) Congestive heart failure (CHF) Problem: Acute Qualifiers: Heart failure type: diastolic Heart failure chronicity: acute on chronic Qualified Code(s): I50.33 - Acute on chronic diastolic (congestive) heart failure (3) Sepsis Problem: Ruled-out Qualifiers: Sepsis type: sepsis due to unspecified organism Qualified Code(s): A41.9 - Sepsis, unspecified organism (4) Hypernatremia Problem: Acute (5) Atrial fibrillation with RVR Problem: Acute (6) Pneumonia Problem: Acute Qualifiers: Laterality: right Lung location: upper lobe of lung (7) Dementia Problem: Chronic Qualifiers: Dementia type: Alzheimer's disease Alzheimer's disease onset: unspecified onset Dementia behavioral disturbance: without behavioral disturbance Qualified Code(s): G30.9 - Alzheimer's disease, unspecified; F02.80 - Dementia in other diseases classified elsewhere without behavioral disturbance
[2018-05-08] MEDS: SENNOSIDES 8.6 MG TABLET PO SCH (21:41)
[2018-05-09] MEDS: LEVALBUTEROL HCL 1.25 MG/3 ML AMPUL IH SCH ×3 (02:11→10:16)
[2018-05-09] MEDS: INSULIN LISPRO 100 UNITS/ML VIAL SC SCH ×2 (07:53→11:51)
[2018-05-09] MEDS: LEVOTHYROXINE SODIUM 50 MCG TABLET PO SCH (07:55)
[2018-05-09] MEDS: AZITHROMYCIN 250 MG TABLET PO SCH (10:05)
[2018-05-09] MEDS: FAMOTIDINE 20 MG TABLET PO SCH (10:05)
[2018-05-09] MEDS: METOPROLOL TARTRATE 100 MG TABLET PO SCH (10:05)
[2018-05-09] MEDS: ASPIRIN 325 MG TABLET.DR PO SCH (10:05)
--- NOTE | 2018-05-09 12:52 | DS ---
(1) Respiratory failure with hypoxia Problem: Resolved Qualifiers: Chronicity: acute Qualified Code(s): J96.01 - Acute respiratory failure with hypoxia (2) Congestive heart failure (CHF) Problem: Acute Qualifiers: Heart failure type: diastolic Heart failure chronicity: acute on chronic Qualified Code(s): I50.33 - Acute on chronic diastolic (congestive) heart f ailure (3) Sepsis Problem: Ruled-out Qualifiers: Sepsis type: sepsis due to unspecified organism Qualified Code(s): A41.9 - Sepsis, unspecified organism (4) Hypernatremia Problem: Acute (5) Atrial fibrillation with RVR Problem: Acute (6) Pneumonia Problem: Acute Qualifiers: Laterality: right Lung location: upper lobe of lung (7) Dementia Problem: Chronic Qualifiers: Dementia type: Alzheimer's disease Alzheimer's disease onset: unspecified onset Dementia behavioral disturbance: without behavioral disturbance Qualified Code(s): G30.9 - Alzheimer's disease, unspecified; F02.80 - Dementia in other diseases classified elsewhere without behavioral disturbance Description of Stay: Michelle is an 83 yo female with chronic dementia that was admitted with acute respiratory failure secondary to acute on chronic diastolic CHF and pneumonia. She also presented with atrial fibrillation with RVR. She was treated with gentle fluids and lasix prn. She was started with rocephin and azithromycin. Over time she was weaned off of oxygen. Today she appears at her baseline. Her oxygen remains >90% on room air. Will continue oral antibiotics with 1 more day of azithromycin and 6 more days cefdnir, converted from rocephin. She may use oxygen as needed to keep >90%. Procedures Performed: none Results and Findings: Pending Mircobiology Results 05/05/18 15:42 Blood Blood Culture - Preliminary NO GROWTH AFTER 48 HOURS 05/05/18 14:55 Blood Blood Culture - Preliminary NO GROWTH AFTER 48 HOURS Lab Pending Results 05/05/18 14:55: Sodium 151 H, Plasma Sodium 154 H, Potassium 3.3 L D, Chloride 113 H, Carbon Dioxide 30.5, Anion Gap 10.8, BUN 41 H D, Creatinine 1.23, Est GFR (Non-Af Amer) 44 L D, BUN/Creatinine Ratio 33.3 H, Random Glucose 284 H, Calcium 9.0, Calcium Adj for Albumin 10.0, Total Bilirubin 0.6, AST 25, ALT 8 L, Alkaline Phosphatase 92, Troponin I 0.151 H*, B-Natriuretic Peptide 3679 H, Total Protein 7.8, Albumin 2.4 L 05/05/18 14:55: WBC 10.8 H, RBC 4.20, Hgb 13.7, Hct 43.5, MCV 103.6 H, MCH 32.6 H, MCHC 31.5 L, RDW 14.8 H, Plt Count 204, MPV 11.8, Immature Gran % (Auto) 0.60 H, Immature Gran # (Auto) 0.06 H, Neutrophils % 77.9 H, Lymphocytes % 10.0 L, Monocytes % 11.1 H, Eosinophils % 0.0, Basophils % 0.4, Nucleated RBC % 0.1, Neutrophils # 8.4 H, Lymphocytes # 1.08 L, Monocytes # 1.2 H, Eosinophils # 0.0, Absolute Basophils 0.0 05/05/18 15:17: pCO2 44.6, pO2 71.9 L, HCO3 27.1, Total CO2 28.4 H, Base Excess 1.8, ABG pH 7.40, ABG O2 Sat (Measured) 94.4 05/05/18 18:02: Urine Color Pale yellow, Urine Appearance Slightly cloudy, Urine pH 6.0, Ur Specific [place] 1.015, Urine Protein Negative, Urine Glucose (UA) Negative, Urine Ketones Negative, Urine Blood 25 H, Urine Nitrate Negative, Urine Bilirubin Negative, Urine Urobilinogen Normal, Ur Leukocyte Esterase 100 H, Urine RBC 5-10 H, Urine WBC 10-25 H, Ur Epithelial Cells 5-10 H, Urine Bacteria 1+ H 05/06/18 07:08: WBC 12.3 H, RBC 4.29, Hgb 13.6, Hct 44.5, MCV 103.7 H, MCH 31.7 H, MCHC 30.6 L, RDW 14.9 H, Plt Count 185, MPV 11.5, Immature Gran % (Auto) 0.60 H, Immature Gran # (Auto) 0.07 H, Neutrophils % 78.7 H, Lymphocytes % 12.3 L, Monocytes % 8.2, Eosinophils % 0.0, Basophils % 0.2, Nucleated RBC % 0.1, Neutrophils # 9.6 H, Lymphocytes # 1.51, Monocytes # 1.0, Eosinophils # 0.0, Absolute Basophils 0.0 05/06/18 07:08: Sodium 148 H, Plasma Sodium 151 H, Potassium 2.9 L, Chloride 110 H, Carbon Dioxide 33.5 H, Anion Gap 7.4, BUN 35 H, Creatinine 1.07, Est GFR (Non-Af Amer) 52 L, BUN/Creatinine Ratio 32.7 H, Random Glucose 258 H, Calcium 8.3, Calcium Adj for Albumin 9.4, Total Bilirubin 0.4, AST 27, ALT 11 L, Alkaline Phosphatase 92, Troponin I 0.055, Total Protein 7.5, Albumin 2.2 L 05/07/18 09:10: WBC 12.3 H, RBC 4.32, Hgb 14.2, Hct 47.1 H, MCV 109.0 H, MCH 32.9 H, MCHC 30.1 L, RDW 15.2 H, Plt Count 150, MPV 12.0, Neutrophils % (Manual) 80 H, Lymphocytes % (Manual) 12 L, Monocytes % (Manual) 3, Neutrophils # (Manual) 9.8 H, Lymphocytes # (Manual) 1.5, Monocytes # (Manual) 0.4, Atypic/Reactive Lymphs 5 H, Platelet Estimate Normal, Anisocytosis 1+, Microcytosis 1+, Target Cells 2+, Tear Drop Cells 1+ 05/07/18 09:10: Sodium 144 H, Plasma Sodium 148 H, Potassium 4.7 H D, Chloride 112 H, Carbon Dioxide 27.2, Anion Gap 9.5, BUN 31 H, Creatinine 1.01, Est GFR (Non-Af Amer) 56 L, BUN/Creatinine Ratio 30.7 H, Random Glucose 324 H, Calcium 8.8, Calcium Adj for Albumin 10.1, Total Bilirubin 0.4, AST 27, ALT 10 L, Alkaline Phosphatase 91, Total Protein 7.4, Albumin 2.0 L 05/08/18 09:55: WBC 10.4, RBC 4.34, Hgb 14.1, Hct 45.4, MCV 104.6 H, MCH 32.5 H, MCHC 31.1 L, RDW 15.0 H, Plt Count 161, MPV 12.3, Immature Gran % (Auto) 0.60 H, Immature Gran # (Auto) 0.06 H, Neutrophils % 75.5 H, Lymphocytes % 16.9 L, Monocytes % 6.2, Eosinophils % 0.4, Basophils % 0.4, Nucleated RBC % 0.1, Neutrophils # 7.9 H, Lymphocytes # 1.76, Monocytes # 0.7, Eosinophils # 0.0, Absolute Basophils 0.0 05/08/18 09:55: Sodium 148 H, Plasma Sodium 150 H, Potassium 4.3, Chloride 112 H, Carbon Dioxide 33.5 H, Anion Gap 6.8, BUN 27 H, Creatinine 0.97, Est GFR (Non-Af Amer) 58 L, BUN/Creatinine Ratio 27.8 H, Random Glucose 200 H D, Calcium 9.3, Calcium Adj for Albumin 10.5 H, Total Bilirubin 0.4, AST 21, ALT 9 L, Alkaline Phosphatase 95, Total Protein 7.6, Albumin 2.1 L Discharge Location: [facility] Disposition: [facility] Condition: Fair Level of Care: SNF Referrals: Michael Chatterjee DO [Primary Care Provider] - Additional Patient Instructions (free text): Oxygen PRN. Titrate to keep saturations 90% or greater. Resume all other orders as prior. Prescriptions (Any new or edited meds): Azithromycin [Zithromax] 250 mg PO DAILY #1 tablet Cefdinir [Omnicef] 300 mg PO Q12H #12 cap Complete Home Medications List: Complete Home Medication List: Alendronate Sodium [Fosamax] 70 mg PO SA 02/27/13 Aspirin 325 mg PO DAILY 02/27/13 glipiZIDE [Glucotrol] 10 mg PO BIDAC tab 12/09/15 Ranitidine HCl [Heartburn Relief] 150 mg PO BID 02/09/16 Bimatoprost [Lumigan 0.01% Ophthalmic Solution] 2.5 ml OP DAILY 07/09/16 Furosemide [Lasix] 40 mg PO DAILY 07/09/16 Metoprolol Tartrate [Lopressor] 50 mg PO BID 07/09/16 metFORMIN HCL [Glumetza] 250 mg PO BID 07/09/16 Cholecalciferol (Vitamin D3) [Vitamin D3] 2,000 unit PO DAILY 09/20/17 Cyanocobalamin [Vitamin B-12] 1,000 mcg PO DAILY 09/20/17 Nystatin [Mycostatin Powder] 1 appl TP BID PRN 09/20/17 albuterol sulfate 2.5 mg/3 mL (0.083 %) solution for nebulization 2.5 mg IH QID PRN 11/14/17 levothyroxine 50 mcg capsule 50 mcg PO DAILY 11/14/17 magnesium hydroxide 400 mg/5 mL oral suspension 30 ml PO DAILY PRN ml 11/14/17 sennosides 8.6 mg tablet 17.2 mg PO QHS tab 11/14/17 Acarbose [Precose] 25 mg PO TID 05/05/18 Acetaminophen [Pain Relief] 500 mg PO Q4H PRN 05/05/18 Calcium Carbonate [Calcium Antacid] 500 mg PO BID 05/05/18 Carboxymethylcellulose Sodium [Refresh Tears] 15 ml OPHTHALMIC (EYE) BID 05/05/18 Lisinopril [Zestril] 2.5 mg PO HS 05/05/18 Acetaminophen [Tylenol] 650 mg PO Q6H PRN tablet 05/09/18 Azithromycin [Zithromax] 250 mg PO DAILY #1 tablet 05/09/18 Cefdinir [Omnicef] 300 mg PO Q12H #12 cap 05/09/18
[2018-05-09 14:07] VITALS: BP 131/81
== END 2018-05-09 14:20 | DRG 291 ==
LOC: ER 14:30 → MS 16:12
PROVIDERS: ADMIT Family Medicine; ATTEND Family Medicine
DX: J18.1 Lobar pneumonia, unspecified organism; Z90.81 Acquired absence of spleen; G30.9 Alzheimer's disease, unspecified; E87.0 Hyperosmolality and hypernatremia; I11.0 Hypertensive heart disease with heart failure; Z83.49 Family history of other endocrine, nutritional and metabolic diseases; Z79.82 Long term (current) use of aspirin; I50.33 Acute on chronic diastolic (congestive) heart failure; E11.9 Type 2 diabetes mellitus without complications; E03.9 Hypothyroidism, unspecified; Z79.84 Long term (current) use of oral hypoglycemic drugs; I27.20 Pulmonary hypertension, unspecified; E87.6 Hypokalemia; F02.80 Dementia in other diseases classified elsewhere, unspecified severity, without behavioral disturbance, psychotic disturbance, mood disturbance, and anxiety; J96.01 Acute respiratory failure with hypoxia; I48.2 Chronic atrial fibrillation; D64.9 Anemia, unspecified
CPT/HCPCS: 36415; 36600; 71010; 71045; 80053; 81001; 82803; 83519; 83880; 84484; 85007; 85025; 87040; 87077; 87081; 87086; 87186; 93005; 94640; 94664; 94760; 96374; 99285